=== PATIENT | male | born 1985 | race Caucasian/White ===

== ENCOUNTER 2024-10-05 09:41 | Outpatient (AMB) | payer OTHER, SELFPAY ==
[2024-10-05 09:53] VITALS: BP 124/60; PULSE 80; TEMP 36.9; O2SAT 98; BMI 35.7
--- NOTE | 2024-10-05 09:53 | AM.OFFWIN_ITS ---
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 Patient states that he moved from [place] approximately 3 weeks ago but denies any overt injury or trauma during that move. Patient states that the pain will limit his neck movement and he feels that the pain is now radiating to his left deltoid. Patient has been taking ibuprofen twice daily intermittently since the onset of his discomfort 1 week ago. Patient denies any anterior chest wall pain or pain radiating down his left arm. Review of Systems Const All systems reviewed & are unremarkable except as noted in HPI and below Reports no additional complaints Eyes Reports no additional complaints ENT Reports neck pain Musc Reports as per HPI, Reports back pain, Reports arthralgias (left posterior shoulder), Denies limited range of motion, Denies muscle weakness, Reports neck pain, Denies numbness, Denies radiating pain into limb and Denies tingling Skin/Breast Reports system reviewed and no additional complaints, except as documented Neuro Reports no additional complaints, Denies numbness and Denies tingling Psych Reports no additional complaints Physical Exam Vital Signs: Last Vital Signs Temp 98.4 F 10/05/24 09:53 Pulse 80 10/05/24 09:53 BP 124/60 10/05/24 09:53 Pulse Ox 98 10/05/24 09:53 Oxygen Delivery Method Room Air 10/05/24 09:53 BMI result Body Mass Index 35.7 Const General: cooperative, healthy appearing, comfortable, no acute distress, well developed, alert, awake and Physically active; No acute distress, in distress or ill appearing Nutritional Appearance: average body habitus Orientation/consciousness: patient oriented x3 Limitations: no limitations Neck Neck: Yes normal visual inspection, Yes full ROM, Yes supple, No midline deformity, No tender and No torticollis Lymphatic: no lymphadenopathy noted Back/Spine/Pelvis Cervical Spine: normal cervical lordosis, cervical ROM normal, No cervical muscular tenderness, No pain with cervical ROM, No Cervical spine tenderness and No cervical ROM abnormal Skin General skin exam: no rashes or lesions noted Neuro General: patient oriented x3 Extrem Other: No pain elicited with internal or external rotation of the left upper extremity, no clavicular pain, coke wheeler strength is equal bilaterally Left upper extremity: normal to inspection, full ROM, no joint enlargement and shoulder/upper arm Details: inspection abnormal and tenderness Location: other (left medial rhomboid); not of the clavicle, not of the A-C joint and not of the scapula; no ecchymosis, no crepitus, no deformity and no unsual warmth; no edema Psych Appearance: grossly normal Mental Status: mental status grossly normal Insight: Good insight present (Psych) Judgement: Good judgement present (Psych) Assessment & Plan Assessment & Plan (1) Strain of left rhomboid muscle: Comment: Given this patient's history coupled with his examination imaging is deferred at this time. Patient has point tenderness to the left rhomboid. Patient will be discharged home with Naprosyn to take twice daily for the next 10 days. Code(s): S29.012A - Strain of muscle and tendon of back wall of thorax, initial encounter Plan: Naprosyn 500 mg twice daily times 10 days. Medications: New naproxen (Naprosyn) 500 mg PO BID 20 tabs 0RF Coding Level of Care Code Est Pt Level 3 (90530) Diagnoses Strain of left rhomboid muscle S29.012A Time Spent (min) 20
== END 2024-10-05 10:46 | disposition home or self-care (01) ==
PROVIDERS: Visit Provider Physician Assistant
DX: S29.012A Strain of muscle and tendon of back wall of thorax, initial encounter (principal)

== ENCOUNTER 2024-10-18 08:01 | Outpatient (AMB) | payer OTHER, SELFPAY ==
[2024-10-18 08:07] VITALS: BP 138/72; PULSE 92; TEMP 37.1; O2SAT 95; BMI 35.6
--- NOTE | 2024-10-18 08:07 | AM.OFFWIN_ITS ---
Intake Vital Signs 10/18/24 08:07 Height 5 ft 8 in Weight 234 lb BMI 35.6 BP 138/72 Blood Pressure Location Rt brachial Position Sitting Pulse 92 Pulse Source Pulse Oximeter Temp 98.8 F Temp Source Oral Pulse Oximetry (%) 95 Oxygen Delivery Method Room Air Intake Visit Reasons: EP-lt arm, shoulder & neck pain Intake Note: pt presents with unresolved left neck, shoulder and arm pain Allergies No Known Allergies Allergy (Verified 10/18/24 08:14) Do you need a note to return to daycare/school/sports/work: Yes HPI HPI Comments History of Present Illness Details History of Present Illness - The patient is a 39-year-old male pres enting with left shoulder and arm pain. - The patient reports experiencing pain in the neck, top of the left shoulder, and left arm for approximately three weeks. - The pain is described as a shooting pa in, with associated muscle weakness in the left arm, making it difficult to hold objects. - The patient was previously prescribed a 10-day course of anti-inflammatory medication, which did not alleviate the symptoms. - The patient recently moved to [facility] and is currently without a primary care provider due to waiting lists. - The patient suspects the pain may be r elated to recent lifting activities during the move and prolonged computer use at work. - The patient has experienced similar pa in in the past, but it typically resolved within a few days. - He is right hand dominant. - He denies numbness, tingling, wrist pa in, falls, CP, or SOB. Physical Exam General: Cooperative, healthy appearing, comfortable, no acute distress and well developed Orientation: Patient oriented x3 Neck: Normal visual inspection and Yes full ROM. No midline spinous tenderness noted. Respiratory: Normal respiratory effort and able to speak in complete sentences. Clear to auscultation bilaterally Cardiovascular: Regular rate and rhythm. Normal S1 and S2 Skin: No rashes or lesions noted Neuro: Sensation is intact. Extremities: FROM of the left shoulder. No click noted. No TTP of the clavicle and AC joint. No TTP of the bicep and tricep on the left. No TTP of the scapula. Lift off is intact. Apprehension and can test is normal. Strength is 5/5 on the UE bilaterally. FROM of the left wrist. Hand staffing associate is intact. Patient was informed and verbally consented to the use of an ambient scribe for clinic note documentation during this visit. Review of Systems Const All systems reviewed & are unremarkable except as noted in HPI and below Physical Exam Vital Signs: Last Vital Signs Temp 98.8 F 10/18/24 08:07 Pulse 92 10/18/24 08:07 BP 138/72 10/18/24 08:07 Pulse Ox 95 10/18/24 08:07 Oxygen Delivery Method Room Air 10/18/24 08:07 BMI result Body Mass Index 35.6 Assessment & Plan Assessment & Plan (1) Shoulder pain, left: Code(s): M25.512 - Pain in left shoulder Qualifiers: Chronicity: acute Qualified Code(s): M25.512 - Pain in left shoulder Plan Most likely strain vs rotator cuff tear vs arthritis vs bursitis vs tendonitis plan - An x-ray of the shoulder is planned to assess for any calcifications or inflammation. - The patient will continue with anti-inflammatory medication and a muscle relaxer has been added to the regimen. - Referral to physical therapy and orthopedics is recommended once a primary care provider is established. - The patient is advised to consider massage or chiropractic therapy as interim measures. Orders: Orders XR shoulder LT min 2V Today M25.512 - Pain in left shoulder Medications: New cyclobenzaprine 5 mg PO Q8H PRN 20 tabs 0RF Muscle Spasm naproxen 500 mg PO Q12H PRN 20 tabs 0RF pain 7 days Coding Level of Care Code Est Pt Level 4 (82493) Diagnoses Acute pain of left shoulder M25.512 Chronicity: acute
== END 2024-10-18 09:15 | disposition home or self-care (01) ==
PROVIDERS: Visit Provider Physician Assistant Medical
DX: M25.512 Pain in left shoulder (principal)

== ENCOUNTER 2024-10-18 08:01 | Outpatient (REF) | payer OTHER, SELFPAY ==
--- NOTE | ~2024-10-18 | XR_ITS ---
EXAMINATION: XR SHOULDER, LEFT CLINICAL INFORMATION: M25.512 - Pain in left shoulder COMPARISON: None available. TECHNIQUE: AP external rotation, Grashey, scapular Y, and axillary views of the left shoulder. FINDINGS: No acute cortical disruption or malalignment. No lytic or blastic lesions. No soft tissue calcifications. No metallic or radiopaque foreign body. No subcutaneous emphysema. XR/XR shoulder LT min 2V IMPRESSION: Normal x-ray left shoulder. Electronically signed by: Oniel Sotelo MD 10/18/2024 09:13 AM EDT
== END 2024-10-18 08:02 | disposition home or self-care (01) ==
LOC: HO.HMGCX 08:01
PROVIDERS: Visit Provider Physician Assistant Medical
DX: M25.512 Pain in left shoulder (principal)
CPT/HCPCS: 73030

== ENCOUNTER → 2024-10-18 09:02 | Outpatient (BNV) | payer OTHER, SELFPAY | PROVIDERS: Visit Provider Radiology Diagnostic Radiology | DX: M25.512 Pain in left shoulder (principal) | CPT/HCPCS: 73030 ==